=== PATIENT | female | born 1995 | race Caucasian/White ===

== ENCOUNTER 2017-10-23 23:07 | Emergency (ER) | payer OTHER ==
[~2017-10-23] VITALS: Ht 167.6 cm; Wt 72.6 kg
[2017-10-23 23:30] VITALS: BP 115/62
[2017-10-23] MEDS ORDERED: Dexamethasone 4mg/ml vial IVP ONE (23:45)
[2017-10-23] MEDS ORDERED: LORazepam Inj 2mg/ml 1ml IV ONE (23:45)
[2017-10-23] MEDS ORDERED: Ketorolac 30mg Inj IV ONE (23:45)
[2017-10-24] MEDS ORDERED: LORazepam Inj 2mg/ml 1ml IV ONE
[2017-10-24 00:08] LABS: BASOPHILS % (AUTO) 0.6 % (0.0-2.0); EOSINOPHILS % (AUTO) 0.5 % (0.0-3.0); HEMATOCRIT 39.2 % (37.0-47.0); HEMOGLOBIN 13.4 G/DL (12.0-16.0); LYMPHOCYTES % (AUTO) 25.4 % (20.0-45.0); MEAN CORPUSCULAR VOLUME 87 FL (80-99); MONOCYTES % (AUTO) 8.9 % (1.0-10.0); NEUTROPHILS % (AUTO) 64.6 % (45.0-75.0); PLATELET COUNT 163 K/UL (150-450); RED BLOOD COUNT 4.51 M/UL (4.20-5.40); RED CELL DISTRIBUTION WIDTH 10.8 % (11.6-14.8); WHITE BLOOD COUNT 6.1 K/UL (4.8-10.8)
[2017-10-24 00:10] LABS: ANION GAP 6 mmol/L (5-15); BLOOD UREA NITROGEN 9 mg/dL (7-18); CALCIUM 9.1 MG/DL (8.5-10.1); CARBON DIOXIDE 27 MMOL/L (21-32); CHLORIDE 104 MMOL/L (98-107); POTASSIUM 3.6 MMOL/L (3.5-5.1); SODIUM 137 MMOL/L (136-145)
[2017-10-24 00:30] VITALS: BP 112/61
[2017-10-24 00:50] VITALS: BP 112/61
[2017-10-24] MEDS ORDERED: ZITHROMAX250 MG ORAL (00:51)
[2017-10-24] MEDS ORDERED: IBUPROFEN600 MG ORAL (00:51)
--- NOTE | 2017-10-24 00:52 | Emergency Room Report ---
History of Present Illness General Chief Complaint: Dyspnea/Respdistress Source: Patient Present Illness HPI Is a 22-year-old female with no significant past medical history. She presents with chief complaint of sore throat and if the breathing. She thinks that she may have an allergy to amoxicillin. She had similar symptom when she was in [place] after taking Apocillin. She was started on antibiotics when she had a fever and sore throat. This is couple days ago. Now increasing pain and hard time swallowing. Also with a cough and feel short of breath. [place] weakness and tiredness to her whole body. She felt weak to the point that she passed out. No nausea no vomiting. No fever or chills anymore. Denies any rash or itching. Allergies: Uncoded Allergies: APOCILLIN (Allergy, Unknown, 10/23/17) Patient History Past Medical History: see triage record, old chart reviewed Past Surgical History: none Pertinent Family History: none Social History: Denies: smoking Last Menstrual Period: 2 weeks Now: No - unk Immunizations: other Reviewed Nursing Documentation: PMH: Agreed; PSxH: Agreed Nursing Documentation-PMH Past Medical History: No Stated History Review of Systems Constitutional: Reports: weakness Eye: Denies: eye pain, blurred vision ENT: Reports: throat pain; Denies: ear pain, nose congestion Respiratory: Denies: cough, shortness of breath Cardiovascular: Denies: chest pain, palpitations Gastrointestinal: Denies: abdominal pain, diarrhea, nausea, vomiting Musculoskeletal: Denies: back pain, joint pain Skin: Denies: rash Neurological: Denies: headache, numbness Endocrine: Denies: increased thirst, increased urine Hematologic/Lymphatic: Denies: easy bruising All Other Systems: negative except mentioned in HPI Physical Exam Vital Signs Date Time Temp Pulse Resp B/P (MAP) Pulse Ox O2 Delivery O2 Flow Rate FiO2 10/23/17 23:10 98.5 94 26 108/63 98 Room Air 98.4 vitals normal Sp02 EP Interpretation: reviewed, normal General Appearance: well appearing, no apparent distress, alert Head: normocephalic, atraumatic Eyes: bilateral eye PERRL, bilateral eye EOMI ENT: hearing grossly normal, normal pharynx, uvula midline, pharyngeal erythema , other - No trismus Neck: full range of motion, supple, no meningismus Respiratory: chest non-tender, lungs clear, normal breath sounds Cardiovascular #1: regular rate, rhythm, no murmur Gastrointestinal: normal bowel sounds, non tender, no mass, no organomegaly, no bruit, non-distended Musculoskeletal: back normal, gait/station normal, normal range of motion Psychiatric: mood/affect normal Skin: warm/dry Medical Decision Making Diagnostic Impression: Primary Impression: Pharyngitis, acute Qualified Codes: J02.9 - Acute pharyngitis, unspecified ER Course Patient with a pharyngitis and jaws weakness. Most likely viral in nature. Doubt strep throat. I do not think this is an allergic reaction either. Labs unremarkable. No evidence of peritonsillar abscess or neoplastic process or Claude angina. No evidence of retropharyngeal abscess. We'll discharge home. Last Vital Signs Date Time Temp Pulse Resp B/P (MAP) Pulse Ox O2 Delivery O2 Flow Rate FiO2 10/24/17 00:01 98.5 10/23/17 23:10 94 26 108/63 98 Room Air Status: improved Disposition: HOME, SELF-CARE Condition: Stable Scripts Azithromycin* (ZITHROMAX*) 250 Mg Tablet 250 MG ORAL DAILY, #6 TAB 0 Refills Take two tables once daily for 1 day, then one tablet once daily for 4 days. Prov: CONRAD PALACIO M.D. 10/24/17 Ibuprofen* (MOTRIN*) 600 Mg Tablet 600 MG ORAL THREE TIMES A DAY, #30 TAB 0 Refills Prov: CONRAD PALACIO M.D. 10/24/17 Additional Instructions: Increase fluids. Salt water gargle. Follow-up with your doctor in 5-7 days. Return if worse. CONRAD PALACIO M.D. Oct 24, 2017 00:52
[2017-10-24] MEDS ORDERED: HYDROCODON-ACE1 EA15 ORAL (00:53)
== END 2017-10-24 00:50 | disposition home or self-care (01) ==
LOC: EMR 23:40
DX: J02.9 Acute pharyngitis, unspecified (principal); R06.00 Dyspnea, unspecified; Z88.1 Allergy status to other antibiotic agents
CPT/HCPCS: 36415; 80048; 85025; 96360; 96374; 96375; 99284; J1100; J1885